=== PATIENT | male | born 1965 | race Caucasian/White ===

== ENCOUNTER 2018-03-22 08:52 | Emergency (ER) | payer BC, MEDICARE ==
[2018-03-22] MEDS ORDERED: ONDANSETRON HCL IV 4 MG/2 ML VIAL IVP ONE (09:02)
[2018-03-22] MEDS ORDERED: 0.9 % SODIUM CHLORIDE 1,000 ML BAG IV ONE (09:02)
--- NOTE | 2018-03-22 09:03 | Emergency Department Record ---
History of Present Illness - General Chief Complaint: Headache Migraine Stated Complaint: HEADACHE Time Seen by Provider: 03/22/18 08:58 Source: Patient, Family Mode of Arrival: Ambulatory Limitations: No limitations - History of Present Illness Initial Comments: 52 yo male with a history of DM, HTN, CAD with TX presents with vision loss and now headache with vomiting. He states that yesterday morning he noted that his vision was missing in left upper quadrant visual bryant of both eyes. This has not returned. Over the course of the day he developed nausea and vomiting. No weakness. No worsening or improvement of the vision loss. No fevers or trauma. PCP Dr Mosley. He was sent from the [facility]. Onset 10am. Awoke without symptoms prior. MD Complaint: Headache, Other (Bilateral Upper left vision loss) -: Hour(s) (24) Onset Description: Gradual Location: Other Severity: Moderate Quality: Aching Consistency: Constant Improves With: Nothing Worsens With: None Associated Symptoms: Nausea, Vision loss Other Symptoms: Other Treatments Prior to Arrival: None - Related Data Home Medications Medication Instructions Recorded Confirmed Last Taken Escitalopram Oxalate [Lexapro] 10 mg PO DAILY 03/22/18 03/22/18 1 Day Ago ~03/21/18 Exenatide Microspheres [Bydureon 2 mg SQ DAILY 03/22/18 03/22/18 1 Day Ago Pen] ~03/21/18 Isosorbide Mononitrate [Imdur] 30 mg PO DAILY 03/22/18 03/22/18 1 Day Ago ~03/21/18 Metoprolol Tartrate [Lopressor] 25 mg PO DAILY 03/22/18 03/22/18 1 Day Ago ~03/21/18 Allergies Allergy/AdvReac Type Severity Reaction Status Date / Time No Known Drug Allergies Allergy Verified 03/22/18 09:00 Review of Systems Constitutional: Denies: Chills, Fever, Malaise, Weakness Eyes: Reports: Vision change. Denies: Eye discharge, Eye pain, Photophobia ENT: Denies: Congestion, Throat pain Respiratory: Denies: Cough, Dyspnea Cardiovascular: Denies: Chest pain, Palpitations, Syncope Endocrine: Denies: Fatigue Gastrointestinal: Denies: Abdominal pain, Diarrhea, Nausea, Vomiting Genitourinary: Denies: Dysuria, Frequency, Hematuria Musculoskeletal: Denies: Arthralgia, Back pain, Myalgia Skin: Denies: Bruising, Change in color, Lesions, Rash Neurological: Reports: Headache. Denies: Abnormal gait, Confusion, Numbness, Paresthesias, Seizure, Tingling, Tremors, Vertigo, Weakness Psychiatric: Denies: Anxiety Hematological/Lymphatic: Denies: Blood Clots, Easy bleeding, Easy bruising Past Medical History - SOCIAL HISTORY Smoking Status: Never smoker - RESPIRATORY Hx Respiratory Disorders: No - CARDIOVASCULAR Hx Cardio Disorders: Yes Hx Heart Attack: Yes (2 stents) Hx Hypertension: Yes - NEURO Hx Neuro Disorders: No - GI Hx GI Disorders: No - Hx Genitourinary Disorders: No - ENDOCRINE Hx Endocrine Disorders: Yes Hx Diabetes: Yes - MUSCULOSKELETAL Hx Musculoskeletal Disorders: Yes Hx Arthritis: Yes (5 types ; incl-psoriatic) - PSYCH Hx Psych Problems: Yes Hx Depression: Yes - HEMATOLOGY/ONCOLOGY Hx Hematology/Oncology Disorders: Yes Comment:: Auto immune disease Family Medical History Family Hx Comment (NOT TO BE USED IN PLACE OF ITEMS BELOW): pt not able to give specifics Physical Exam - General General Appearance: Alert, Oriented x3, Cooperative, No acute distress Limitations: No limitations - Head Head exam: Atraumatic, Normocephalic, Normal inspection - Eye Eye exam: Normal appearance, PERRL, EOMI. negative: Conjunctival injection, Nystagmus, Periorbital swelling, Periorbital tenderness, Scleral icterus Pupils: Normal accommodation - ENT ENT exam: Normal exam, Mucous membranes moist Ear exam: Normal external inspection Nasal Exam: Normal inspection Mouth exam: Normal external inspection Teeth exam: Normal inspection Throat exam: Normal inspection - Neck Neck exam: Normal inspection, Full ROM. negative: Tenderness - Respiratory Respiratory exam: Normal lung sounds bilaterally. negative: Respiratory distress - Cardiovascular Cardiovascular Exam: Regular rate, Normal rhythm, Normal heart sounds. negative : Tachycardia Peripheral Pulses: 2+: Radial (R), Radial (L) - GI/Abdominal GI/Abdominal exam: Soft. negative: Tenderness - Rectal Rectal exam: Deferred - exam: Deferred - Extremities Extremities exam: Normal inspection. negative: Tenderness - Back Back exam: Denies: CVA tenderness (R), CVA tenderness (L) - Neurological Neurological exam: Alert, Oriented X3, Reflexes normal, Other (No PND, normal FTN, On confrontation testing he had Right and Left upper quadrant no vision, unable to see objects or movement). negative: Altered, CN II-XII intact, Motor sensory deficit - Psychiatric Psychiatric exam: Normal affect, Normal mood - Skin Skin exam: Dry, Intact, Normal color, Warm Stroke Assessment - NIH Stroke Scale 1a. Level of Consciousness: (0) Alert 1b. LOC Questions: (0) Answers Correctly 1c. LOC Commands: (0) Performs Tasks Correctly 2. Best Gaze: (0) Normal 3. Visual: (3) Bilateral Hemianopia 4. Facial Palsy: (0) Normal Symmetrical Movement 5a. Motor Arm Left: (0) No Drift 5b. Motor Arm Right: (0) No Drift 6a. Motor Leg Left: (0) No Drift 6b. Motor Leg Right: (0) No Drift 7. Limb Ataxia: (0) Absent 8. Sensory: (0) Normal 9. Best Language: (0) No Aphasia 10. Dysarthria: (0) Normal 11. Extinction/Inattention: (0) No Abnormality NIH Stoke Scale Total: 3 Course - Reevaluation(s) Reevaluation #1: 03/22/18 09:06 NIH is 3 at this time 03/22/18 09:15 EKG #1: 0909 Rate: 68 Rhythm: NSR [place]: Left Intervals: Normal ST segments: LVH, inferior Q's Prior: None 03/22/18 09:37 The labs have been reviewed No acute changes on the CBC The Glucose is 179 CT completed. Radiology called for stat read Prelim read large hypodensity right occipital parietal 03/22/18 09:50 Waiting for final read. [facility] Call [facility] called for neurology. 03/22/18 09:[address] Vazquez accepts the patient for transfer for direct admit. 03/22/18 09:59 03/22/18 10:04 Radiologist called. Large right sided stroke. A thin rim of more hyperdense parenchyma near the normal tissue. Bleeding is not ruled out. Aspirin will be held. Medical Decision Making - Lab Data Result diagrams: 03/22/18 09:09 03/22/18 09:09 Disposition Disposition: Transfer Clinical Impression: Bilateral hemianopia Headache Qualifiers: Headache type: unspecified Headache chronicity pattern: acute headache Intractability: not intractable Qualified Code(s): R51 - Headache Disposition: Acute Care Hospital Transfer Transfer To: [facility] Reason For Transfer: stroke Accepting Physician: George Time Discussed w/Accepting Physician: 09:57 Condition: (2) Stable Forms: Patient Portal Access Time of Disposition: 09:38 Quality - Quality Measures Quality Measures: N/A - Blood Pressure Screening Does Patient Have Any of the Following: Active Dx of HTN Blood Pressure Classification: Hypertensive Reading Systolic Measurement: 154 Diastolic Measurement: 93 Screening for High Blood Pressure: Patient Exclusion, Hx of HTN [[id number]]
[2018-03-22 09:19] LABS: BASO % 0.2 % (0-6); EOS % 0.2 % (0-6); GRAN % 72.4 % (47-80); HEMATOCRIT 46.3 % (42.0-52.0); HEMOGLOBIN 15.8 gm/dl (14.0-18.0); LYMPH % 21.2 % (16-45); MEAN CELL VOLUME 84.5 fl (81-97); MEAN CORPUSCULAR HEMOGLOBIN 28.8 pg (27-33); MEAN CORPUSCULAR HGB CONC 34.1 g/dl (32-36); MEAN PLATELET VOLUME 10.3 fl (7.4-10.4); PLATELET COUNT 176 K/uL (130-400); RED BLOOD COUNT 5.48 M/uL (4.40-5.70); RED CELL DISTRIBUTION WIDTH 13.9 % (11.5-14.5); WHITE BLOOD COUNT W/O DIFF 11.5 K/uL (4.2-12.2)
[2018-03-22 09:27] LABS: BLOOD UREA NITROGEN 9 mg/dL (6-20); CREATININE 0.9 mg/dL (0.7-1.2); EST GLOMERULAR FILTRATION RATE > 60 mL/min
[2018-03-22 09:28] LABS: TOTAL PROTEIN 7.2 g/dL (6.6-8.7)
[2018-03-22 09:30] LABS: GLUCOSE,RANDOM 179 mg/dL (74-109); INR 1.2; PARTIAL THROMBOPLASTIN TIME 28.1 SECONDS (24.5-39.1); PROTHROMBIN TIME (PATIENT) 12.4 SECONDS (9.5-12.1)
[2018-03-22 09:32] LABS: ALB/GLOB RATIO 1.2 (1.1-1.8); ALBUMIN 3.9 g/dL (4.0-5.0); ALKALINE PHOSPHATASE 83 U/L (40-129); ALT/SGPT 23 U/L (<41); AST/SGOT 23 U/L (10.0-50.0)
[2018-03-22] MEDS ORDERED: MORPHINE SULFATE 10 MG/ML VIAL IVP ONE (09:40)
[2018-03-22] MEDS ORDERED: ACETAMINOPHEN 1,000 MG/100 ML BTL IVPB ONE (09:40)
[2018-03-22 10:27] LABS: ERYTHROCYTE SEDIMENTATION RATE 7 mm/hr (0-20)
--- NOTE | 2018-03-24 09:33 | CT SCAN REPORT ---
EXAM: CT OF THE BRAIN WITHOUT CONTRAST HISTORY: CEREBROVASCULAR ACCIDENT. TECHNIQUE: Sequential axial images were obtained from the foramen magnum to the vertex without contrast administration. FINDINGS: There is an age indeterminate area of infarction in the right occipital region. The brain volume is normal. There is an age indeterminate area of infarction in the right occipital lobe region. No mass effect or midline shift. The orbits, paranasal sinuses, and mastoid air cells are normal. IMPRESSION: AGE INDETERMINATE AREA OF INFARCTION IN THE RIGHT OCCIPITAL REGION. EQUIVOCAL FOCAL AREA OF HYPERDENSITY IN THE RIGHT TEMPORAL REGION WHICH MAY REPRESENT A FOCUS OF HEMORRHAGE VERSUS NONINFARCTED BRAIN PARENCHYMA. FOLLOW-UP IMAGING IS RECOMMENDED. JOB NUMBER: [id number] MTDD
== END 2018-03-22 10:37 | disposition short-term general hospital (02) ==
LOC: ER 08:52
DX: I63.9 Cerebral infarction, unspecified (principal); H53.47 Heteronymous bilateral field defects; R51 Headache; R11.0 Nausea; I10 Essential (primary) hypertension; E11.9 Type 2 diabetes mellitus without complications; I25.10 Atherosclerotic heart disease of native coronary artery without angina pectoris; I25.2 Old myocardial infarction; Z95.5 Presence of coronary angioplasty implant and graft
CPT/HCPCS: 99285 ×2; 96365; 96375; 96361; 85025; 85651; 85730; 85610; 80053; 70450; 93005; 93010; J2405; J2270; J7030